=== PATIENT | female | born 1995 | race Caucasian/White ===

== ENCOUNTER 2017-04-27 03:02 | Outpatient (CLI) | payer OTHER ==
[2017-04-27 04:20] VITALS: BP 122/85; PULSE 102; RESP 16; TEMP 96.2
--- NOTE | 2017-04-27 20:19 | P.MSEPDOC ---
Presenting Problems - Arrival Data Date of Arrival on Unit: 04/27/17 Time of Arrival on Unit: 03:02 Mode of Transport: Wheelchair - Complaint OB-Reason for Admission/Chief Complaint: Possible Onset of Labor Medical History - Information : 1 Para: 0 Term: 0 : 0 Abortions: Spontaneous or Elective: 0 Number of Living Children: 0 - Gestational Age Gestational Age by KEVIN (wks/days): 40 Weeks and 6 Days Review of Systems - Review of Systems Constitutional: No problems Breast: No problems ENT: No problems Cardiovascular: No problems Respiratory: No problems Gastrointestinal: No problems Genitourinary: No problems Musculoskeletal: No problems Neurological: No problems Skin: No problems Vital Signs - Temperature Temperature: 96.2 F Temperature Source: Tympanic - Pulse Right Brachial Pulse Rate: 102 Pulse Assessment Method: Automatic Cuff - Respirations Respiratory Rate: 16 Oxygen Delivery Method: Room Air O2 Sat by Pulse Oximetry: 100 - Blood Pressure Right Arm Blood Pressure: 122/85 Blood Pressure Mean: 97 Blood Pressure Source: Automatic Cuff Medical Screen Scoring (Pre) - Cervical Exam Dilation: 1-3 cm = 1 Membranes: Intact - Uterine Contractions Frequency: > 5 minutes apart = 1, > or = 36 weeks =2 - Maternal Vital Signs Maternal Temperature: N/A Maternal Blood Pressure: N/A Signs of Preeclampsia: N/A Maternal Respirations: N/A - Maternal Trauma Maternal Trauma: N/A - Assessment Baseline FHR: 125 Heart Rate - NICHD Category: Category I (Normal) = 0 NST: Reactive Position: N/A Station: N/A - Total Score Total Score (Pre): 4 - Level of Risk Level of Risk: Low (0-5) Physician Notification (Pre) - Physician Notified Physician Notified Date: 04/27/17 Physician Notified Time: 03:45 Physician/Practitioner Notifed:: Dr. Mccloud Spoke With: Dr. Mccloud - Notification Comment Comment: Dr. Mccloud in unit and given report on pt, c/o of contractions, vag exam. Medical Screen Scoring (Post) - Cervical Exam Dilation: 1-3 cm = 1 Membranes: Intact - Uterine Contractions Frequency: > or = 36 weeks =2 - Maternal Vital Signs Maternal Temperature: N/A Maternal Blood Pressure: N/A Signs of Preeclampsia: N/A Maternal Respirations: N/A - Maternal Trauma Maternal Trauma: N/A - Assessment Heart Rate: 125 Heart Rate - NICHD Category: Category I (Normal) = 0 NST: Reactive Position: N/A Station: N/A - Total Score Total Score (Post): 3 - Post Treatment Level of Risk Post Treatment Level of Risk: Low (0-5) Physician Notification (Post) - Physician Notified Physician Notified Date: 04/27/17 Physician Notified Time: 04:30 Physician/Practitioner Notified:: Dr. Mccloud Spoke With: Dr. Mccloud New Order Received: Yes (D/c pt to home) - Notification Comment Comment: Dr. Mccloud notified of no change in pts vag exam after initial hour. Orders. recieved to d/c pt to home. Disposition - Disposition OB Disposition: Discharge to home Discharge Date: 04/27/17 Discharge Time: 04:40 I agree with the RN Medical Screening Exam: Yes Risk & Benefit of care provided described in d/c instruction: Yes Diagnosis: FALSE LABOR AT OR AFTER 37 COMPLETED WEEKS OF GESTATION
== END 2017-04-27 04:40 | disposition home or self-care (01) ==
LOC: FBPOP 03:02
PROVIDERS: ATTEND Obstetrics & Gynecology
DX: O47.1 False labor at or after 37 completed weeks of gestation (principal); Z3A.40 40 weeks gestation of pregnancy
CPT/HCPCS: 59025; 99213

== ENCOUNTER 2017-04-27 17:57 | Inpatient (IN) | payer OTHER ==
[2017-04-27] MEDS ORDERED: LIDOCAINE 1% (PF) 10 MG/ML (30 ML SDV) SQ PRN (18:44)
[2017-04-27] MEDS ORDERED: METHYLERGONOVINE 0.2 MG/ML 1 ML AMP IM PRN (18:44)
[2017-04-27] MEDS ORDERED: TERBUTALINE 1 MG/ML VIAL SQ PRN (18:44)
[2017-04-27] MEDS ORDERED: OXYTOCIN 10 UNIT/ML 1 ML VIAL IM PRN (18:44)
[2017-04-27] MEDS ORDERED: CARBOPROST TROMETHAMINE 250 MCG/ML 1 ML AMP IM PRN (18:44)
[2017-04-27] MEDS ORDERED: LACTATED RINGERS 1,000 ML IV SCH (18:45)
[2017-04-27] MEDS: LACTATED RINGERS 1,000 ML IV SCH ×2 (19:00→20:55)
[2017-04-27 19:11] LABS: Basophils % (A) 0 %; CHCM 35.3; Eosinophils % (A) 0 %; HCT 43.8 % (34.0-46.0); HGB 15.2 gm/dL (11.4-16.0); Luc # (Auto) 0.19; Luc % (Auto) 2; Lymphocytes # (A) 0.9 k/uL (1.0-4.8); Lymphocytes % (A) 9 %; MCH 30.5 pg (25.0-35.0); MCHC 34.6 g/dL (31.0-37.0); MCV 88.1 fL (80.0-100.0); Mean Platelet Volume 6.8; Monocytes # (A) 0.7 k/uL (0-1.0); Monocytes % (A) 7 %; Neutrophils # (A) 8.5 k/uL (1.3-7.7); Neutrophils % (A) 82 %; RBC 4.97 m/uL (3.80-5.40); RDW 13.2 % (11.5-15.5); WBC 10.4 k/uL (3.8-10.6); WBC (Perox) 10.74
[2017-04-27] MEDS ORDERED: fentaNYL (PF) 50 MCG/ML 5 ML AMP ONE (19:20)
[2017-04-27] MEDS ORDERED: SODIUM CHLORIDE 0.9% 100 ML BAG ONE (19:20)
[2017-04-27] MEDS ORDERED: BUPIVACAINE (PF) 0.25% 30 ML VIAL ONE (19:20)
[2017-04-27 19:33] VITALS: BMI 25.0
[2017-04-27] MEDS ORDERED: BUPIVACAINE (PF) 0.25% 25 ML, fentaNYL (PF) 200 MCG in SODIUM CHLORIDE 0.9% 71 ML EPIDURAL ONE (19:42)
--- NOTE | 2017-04-27 20:02 | P.HPOB ---
History of Present Illness H&P Date: 04/27/17 Chief Complaint: 40-6/7 weeks, active labor The patient is a 22-year-old 2 para 0010 admitted at 40-6/7 weeks as established by last menstrual period and confirmed by second trimester ultrasound. She is admitted in active labor with all signs reassuring. Her has been uncomplicated though she did have the first portion of her prior to approximate 32 weeks cared for with another doctor. Since transfer to our care, her has been uncomplicated. Group B strep status is negative. Obstetrical history 2 para 0010 with 1 elective interruption of . Current statistics are listed in history present illness. EDC of 04/21/2017 was established by last menstrual period and confirmed by second trimester ultrasound. Laboratory workup demonstrates a blood type of A+ with a negative antibody screen. Rubella status is immune. The remainder of her laboratory workup is unremarkable though she is apparently varus sella nonimmune. One hour Glucola was within normal limits and group B strep status is negative. Gynecologic history is unremarkable with no history of any infections to include STDs. Review of Systems Review of systems is confined to history of present illness. Past Medical History Additional Past Medical History / Comment(s): anxiety History of Any Multi-Drug Resistant Organisms: None Reported Past Surgical History: No Surgical Hx Reported Past Anesthesia/Blood Transfusion Reactions: No Reported Reaction Past Psychological History: Anxiety Additional Psychological History / Comment(s): never treated Smoking Status: Never smoker Past Alcohol Use History: None Reported Past Drug Use History: None Reported - Past Family History Father Family Medical History: No Reported History Medications and Allergies Home Medications Medication Instructions Recorded Confirmed Type Vit 113/Iron/Lmfolate 1 each PO 04/27/17 History [ Chewable Tab] Allergies Allergy/AdvReac Type Severity Reaction Status Date / Time Penicillins AdvReac Rash/Hives Verified 04/27/17 03:33 Exam - Vital Signs Vital signs: Vital Signs Temp Pulse Resp BP Pulse Ox 04/27/17 18:15 98.0 F 120 H 18 120/84 100 Intake and Output 04/27/17 04/27/17 04/27/17 06:59 14:59 22:59 Other: Weight 74.843 kg Patient Weight 04/28/17 06:59 Weight 74.843 kg In general, this is a well-developed, well-nourished white female in no acute distress. Her heart has a regular rhythm and rate without murmur. Her lungs are clear to auscultation bilaterally in all ken. Her abdomen is gravid, nondistended, has normal active bowel sounds, is soft, nontender, and without any palpable masses aside from the uterine fundus. Her extremities are without any cyanosis, clubbing, or edema and are nontender to palpation bilaterally. Digital cervical examination done traits her cervix to approximate 7 cm dilated , 90% effaced, the vertex in presentation at -2 station. Artificial rupture of membranes is carried out demonstrating lightly meconium-stained fluid. Results Result Diagrams: 04/27/17 18:35 Abnormal Lab Results - Last 24 Hours (Table) 04/27/17 Range/Units 18:35 Neutrophils # 8.5 H (1.3-7.7) k/uL Lymphocytes # 0.9 L (1.0-4.8) k/uL Assessment and Plan (1) Active labor at term Status: Acute Plan: The patient is admitted for active management of labor. An epidural catheter has been placed for analgesia. She will continue to have close maternal and surveillance and expectant management will be practiced. She may require Pitocin augmentation should there be no progress over the next hour.
[2017-04-27] MEDS ORDERED: OXYTOCIN 20 UNITS/1000 ML NS 1,000 ML IV SCH ×2 (21:00→23:00)
[2017-04-27] MEDS ORDERED: diphenhydrAMINE 50 MG/ML 1 ML VIAL IVP PRN ×2 (22:56)
[2017-04-27] MEDS ORDERED: diphenhydrAMINE 25 MG CAP PO PRN (22:56)
[2017-04-27] MEDS ORDERED: Acetaminophen-Codeine 300-30mg TAB PO PRN ×2 (22:56)
[2017-04-27] MEDS ORDERED: ZOLPIDEM 5 MG TAB PO PRN (22:56)
[2017-04-27] MEDS ORDERED: LANOLIN CREAM 5 GM TUBE TOPICAL PRN (22:56)
[2017-04-27] MEDS ORDERED: BENZOCAINE/MENTHOL SPRAY 1 GM/SPRAY AEROSOL TOPICAL PRN (22:56)
[2017-04-27] MEDS ORDERED: WITCH HAZEL 1 EACH MED..PAD TOPICAL PRN (22:56)
[2017-04-27] MEDS ORDERED: HYDROCORTISONE 2.5% RECTAL CREAM 30 GM TUBE RECTAL PRN (22:56)
[2017-04-27] MEDS ORDERED: diphenhydrAMINE 50 MG CAP PO PRN (22:56)
[2017-04-27] MEDS ORDERED: SIMETHICONE 80 MG CHEWABLE PO PRN (22:56)
--- NOTE | 2017-04-27 23:00 | P.PROBDLV ---
Vaginal Delivery Note - . Vaginal Delivery Note: The patient is a 22-year-old 2 para 0010 admitted at 40-6/7 weeks by good dating parameters pH she is admitted in active labor with all signs reassuring. Her has been uncomplicated and group B strep status is negative. On labor and delivery, she had an epidural catheter placed for analgesia. She then underwent artificial rupture of membranes demonstrating lightly meconium-stained fluid. She was making little progress, Pitocin augmentation was started. She then progressed fairly quickly to complete and was having moderate terminal bradycardia with pushing. She was, however, making very steady and rapid progress. heart tones recovered prior to delivery and she pushed over approximately 15 minutes to a normal spontaneous vaginal delivery of a viable 7 lbs. 5 oz. baby boy with Apgars of 8 at 1 minute and 9 at 5 minutes delivered in the right occiput anterior position. The nose and mouth were thoroughly suctioned on the perineum prior to delivery secondary to meconium and per protocol. Following delivery, the infant was immediately vigorous and pink. The placenta was delivered spontaneously, intact , and grossly normal although it was meconium-stained. There was a grossly normal three-vessel cord inserted approximately 2-3 cm from the margin of the placental edge. There were no lacerations of the perineum, vagina, or cervix. Estimated blood loss for the case is approximately 200 mL. There were no complications. All sponge, instrument, and needle counts were correct. Both mother and infant are resting comfortably in recovery.
[2017-04-27] MEDS: IBUPROFEN 600 MG TAB PO PRN (23:10)
[2017-04-28] MEDS: ACETAMINOPHEN TAB 325 MG TAB PO PRN ×2 (05:42→11:18)
--- NOTE | 2017-04-28 07:56 | P.PNOBGVD ---
Subjective - Subjective Patient reports: Reports appetite normal, Reports voiding normally, Reports pain well controlled, Reports ambulating normally : doing well Objective - Latest Vital Signs Latest vital signs: Vital Signs Temp Pulse Resp BP Pulse Ox 04/28/17 04:00 98.5 F 110 H 13 118/73 04/28/17 00:46 114 H 16 133/79 04/28/17 00:16 97.7 F 141 H 16 124/67 04/27/17 23:46 129 H 16 114/76 04/27/17 23:31 117 H 16 127/72 04/27/17 23:16 98.8 F 122 H 16 138/83 04/27/17 23:01 131 H 16 132/79 04/27/17 22:46 98.8 F 123 H 16 142/93 04/27/17 18:15 98.0 F 120 H 18 120/84 100 Intake and Output 04/27/17 04/28/17 04/28/17 22:59 06:59 14:59 Output Total 600 Balance -600 Output: Urine 600 Other: # Voids 1 2 Weight 74.843 kg - Exam Lungs: bilateral: normal Chest: Normal S1, Normal S2 Extremities: Present: normal Abdomen: Present: normal appearance, soft Uterus: Present: normal, firm (The uterine fundus as tonic and nontender at the umbilicus.) - Labs Labs: Abnormal Lab Results - Last 24 Hours (Table) 04/27/17 Range/Units 18:35 Neutrophils # 8.5 H (1.3-7.7) k/uL Lymphocytes # 0.9 L (1.0-4.8) k/uL Assessment and Plan (1) Active labor at term Current Visit: Yes Status: Acute Code(s): UNG0225 - SNOMED Code(s): 16689307 (2) Normal spontaneous vaginal delivery Narrative/Plan: Continue routine care. I would anticipate discharge home tomorrow pending no complications. Current Visit: Yes Status: Acute Code(s): O80 - ENCOUNTER FOR FULL-TERM UNCOMPLICATED DELIVERY SNOMED Code(s): 13913537
[2017-04-28] MEDS: SENNOSIDES-DOCUSATE SODIUM 1 EACH TAB PO SCH (14:22)
[2017-04-28] MEDS: IBUPROFEN 600 MG TAB PO PRN ×2 (14:52→23:48)
[2017-04-28 16:28] VITALS: TEMP 98.2
[2017-04-29] MEDS: SENNOSIDES-DOCUSATE SODIUM 1 EACH TAB PO SCH ×2 (00:09→08:36)
[2017-04-29 08:32] VITALS: BP 112/62; PULSE 86; RESP 20
--- NOTE | 2017-04-29 09:10 | P.PNOBGVD ---
Subjective - Subjective Principal diagnosis: day 2 Interval history: On day #2 this patient is doing well. She is ambulating and voiding without difficulty. She is tolerating regular diet. She denies nausea or vomiting. Her lochia is minimal and she is breast-feeding without difficulty. Patient reports: Reports appetite normal, Reports voiding normally, Reports pain well controlled : doing well (The bedside with mom) Objective - Latest Vital Signs Latest vital signs: Vital Signs Temp Pulse Resp BP 04/29/17 08:00 98.2 F 86 20 112/62 04/28/17 16:00 98.2 F 108 H 18 126/76 Intake and Output 04/28/17 04/29/17 04/29/17 22:59 06:59 14:59 Intake Total 750 Balance 750 Intake: Oral 750 Other: # Voids 1 1 - Exam Lungs: bilateral: normal Extremities: Present: normal Abdomen: Present: normal appearance Uterus: Present: firm Assessment and Plan (1) Active labor at term Narrative/Plan: Anticipate discharge later this morning. Discharge instructions are discussed with this patient in detail. She will follow-up in 2 weeks at [facility] OB/ DATABASE ADMINISTRATION ASSOCIATE with myself Current Visit: Yes Status: Acute Code(s): URE9161 - SNOMED Code(s): 00738378
--- NOTE | 2017-04-29 09:13 | P.DS ---
Providers Date of admission: 04/27/17 18:16 Expected date of discharge: 04/29/17 Attending physician: Mei Erickson Primary care physician: Stated None - Discharge Diagnosis(es) (1) Active labor at term This is a very pleasant 22-year-old 1 para 0 that presented in active labor on 04/27/2017. She progressed to complete and had a normal spontaneous vaginal delivery of a viable male . At 2240. Apgars of 8 and 9 at one and 5 minutes respectively. Weight of 7 lbs. 5 oz. this patient did well and is without complaints today on day #2 and wishes discharge home Current Visit: Yes Status: Acute Hospital Course: Patient was admitted on 04/27/2017 for active labor. She was 6 cm dilated on admission. She progressed through labor and had a normal spontaneous vaginal delivery of a viable male at 2240 weight 7 lbs. 5 oz., Apgars of 8 and 9 at one and 5 minutes respectively. Her course has been uncomplicated. She is ambulatory and voiding without difficulty she is tolerating a regular diet without nausea or vomiting. Her lochia is minimal, breast-feeding is going well Patient Condition at Discharge: Good Plan - Discharge Summary New Discharge Prescriptions: No Action Vit 113/Iron/Lmfolate [ Chewable Tab] 1 each PO Discharge Medication List Vit 113/Iron/Lmfolate [ Chewable Tab] 1 each PO [History] Follow up Appointment(s)/Referral(s): Mei Erickson DO [Doctor of Osteopathic Medicine] - 2 Weeks Patient Instructions/Handouts: Vaginal Delivery (DC) Discharge Disposition: HOME SELF-CARE
== END 2017-04-29 12:05 | disposition home or self-care (01) | DRG 775 ==
LOC: FBPOP 17:57 → 4FBP 18:16
PROVIDERS: ADMIT Obstetrics & Gynecology; ATTEND Obstetrics & Gynecology Obstetrics
PROC: 3E0R3BZ Introduction of Anesthetic Agent into Spinal Canal, Percutaneous Approach (ICD-10-PCS; principal; 2017-04-27)
PROC: 10E0XZZ Delivery of Products of Conception, External Approach (ICD-10-PCS; principal; 2017-04-27)
PROC: 00HU33Z Insertion of Infusion Device into Spinal Canal, Percutaneous Approach (ICD-10-PCS; principal; 2017-04-27)
PROC: 10907ZC Drainage of Amniotic Fluid, Therapeutic from Products of Conception, Via Natural or Artificial Opening (ICD-10-PCS; principal; 2017-04-27)
DX: O48.0 Post-term pregnancy (principal); O77.0 Labor and delivery complicated by meconium in amniotic fluid; Z37.0 Single live birth; Z3A.40 40 weeks gestation of pregnancy; Z88.0 Allergy status to penicillin
CPT/HCPCS: 59025; 85025; 88307; 99213

== ENCOUNTER → 2022-02-19 | Outpatient (CLI) | payer OTHER ==
[2022-02-19 22:20] LABS: HCT 41.1 % (37.2-46.3); HGB 13.8 g/dL (12.0-15.0); MCH 30.8 pg (27.0-32.0); MCHC 33.6 g/dL (32.0-37.0); MCV 91.7 fL (80.0-97.0); NRBC Per 100 WBC 0 /100 WBCS (0.0-0.0); Platelet Count 236 X 10*3/uL (140-440); RBC 4.48 X 10*6/uL (4.10-5.20); RDW 12.6 % (11.5-14.5); WBC 5.01 X 10*3/uL (4.50-10.00)
== END | disposition home or self-care (01) ==
LOC: LABPAT 15:25
PROVIDERS: ATTEND Obstetrics & Gynecology Obstetrics
DX: Z01.812 Encounter for preprocedural laboratory examination (principal); D06.9 Carcinoma in situ of cervix, unspecified
CPT/HCPCS: 85027

== ENCOUNTER 2022-03-12 08:20 | Day surgery (SDC) | payer OTHER ==
[~2022-03-12 08:20] MED LIST: DEXAMETHASONE SOD PHOSPHATE 4 MG/ML 1 ML VIAL IV ONE; HYDROmorphone 0.5 MG/0.5 ML SYRINGE IVP PRN; LACTATED RINGERS 1,000 ML IV SCH; ONDANSETRON 4 MG/2 ML VIAL IVP ONE; Pre Op ABX Message 1 EACH MISC MISCELLANE ONE
[2022-03-12] MEDS ORDERED: MIDAZOLAM 2 MG/2 ML VIAL IVP ONE (09:10)
--- NOTE | 2022-03-12 09:19 | P.HPOB ---
History of Present Illness H&P Date: 03/12/22 Chief Complaint: EDGAR 2, moderate dysplasia 26-year-old female that presents for cold knife cone. Patient underwent colposcopy screening for ASCUS, positive HPV Pap smear. Patient had biopsies consistent with EDGAR-2 at 12:00 and a positive ECC. Review of Systems Constitutional: Denies chills, Denies fatigue, Denies fever Ears, nose, mouth and throat: Denies headache Cardiovascular: Denies leg edema Respiratory: Denies dyspnea Gastrointestinal: Denies nausea, Denies vomiting Genitourinary: Denies Past Medical History Past Medical History: No Reported History Additional Past Medical History / Comment(s): anxiety History of Any Multi-Drug Resistant Organisms: None Reported Past Surgical History: No Surgical Hx Reported Additional Past Surgical History / Comment(s): wisdom teeth removed w/sedation Past Anesthesia/Blood Transfusion Reactions: No Reported Reaction Smoking Status: Never smoker - Past Family History Father Family Medical History: No Reported History Medications and Allergies Home Medications Medication Instructions Recorded Confirmed Type norethindrone-e.estradioL-iron 1 each PO HS 03/09/22 03/12/22 History [ 24 Tablet] Allergies Allergy/AdvReac Type Severity Reaction Status Date / Time Penicillins AdvReac Rash/Hives Verified 03/12/22 08:37 Exam Osteopathic Statement: *. No significant issues noted on an osteopathic structural exam other than those noted in the History and Physical/Consult. Vital Signs Temp Pulse Resp BP Pulse Ox 03/12/22 08:43 97.3 F L 67 16 110/57 97 Intake and Output 03/11/22 03/12/22 03/12/22 22:59 06:59 14:59 Other: Weight 70.7 kg Targeted physical exam is performed in this date and dairy clerk a well-nourished well-developed non patient in no acute distress, breathing is noted to nonlabored, heart has a regular rate and rhythm, abdomen is soft and nontender, on genitourinary exam external genitalia is normal for age no lesions are appreciated. Vaginal mucosa is noted be pink and well rugated the cervix is without lesions and nontender to palpation. There are no adnexal masses appreciated. Assessment and Plan (1) EDGAR II (cervical intraepithelial neoplasia II) Current Visit: Yes Status: Acute Code(s): N87.1 - MODERATE CERVICAL DYSPLASIA SNOMED Code(s): 513688927 Plan: 26-year-old non patient with moderate to severe dysplasia, on colposcopy exam positive biopsies at 12:00 for EDGAR-2, ECC positive for EDGAR-2 as well. Patient's counseling cold knife cone. Multiple questions are answered. Patient states understanding and wishes to proceed with cold knife cone.
[2022-03-12] MEDS ORDERED: KETOROLAC 15 MG/ML 1 ML VIAL ONE (09:30)
[2022-03-12] MEDS ORDERED: MIDAZOLAM 2 MG/2 ML VIAL ONE (09:30)
[2022-03-12] MEDS ORDERED: PROPOFOL 10 MG/ML 20 ML VIAL IV ONE (09:30)
[2022-03-12] MEDS ORDERED: fentaNYL (PF) 50 MCG/ML 2 ML AMP ONE (09:30)
[2022-03-12] MEDS ORDERED: LIDOCAINE 2% INJ 20 MG/ML (2 ML VIAL) ONE (09:30)
[2022-03-12] MEDS ORDERED: LIDOCAINE 1%-EPI 1:100,000 20 ML VIAL SUBMUCOSAL ONE (09:48)
[2022-03-12] MEDS ORDERED: IODINE/POTASS IOD (LUGOLS) BOTTLE TOPICAL ONE (09:48)
[2022-03-12 10:11] VITALS: TEMP 97.6
--- NOTE | 2022-03-12 10:17 | P.OP ---
Date of Procedure: 03/12/22 Preoperative Diagnosis: EDGAR-2 Postoperative Diagnosis: Same Procedure(s) Performed: Cold knife cone Anesthesia: MAC Surgeon: Mei Erickson Estimated Blood Loss (ml): 10 IV fluids (ml): 400 Urine output (ml): 100 Pathology: other (Cervical specimen) Condition: stable Disposition: PACU Indications for Procedure: EDGAR-2 noted at 12:00, positive ECC for EDGAR-2 Operative Findings: Normal-appearing cervix, cold knife cone specimen obtained without difficulty. Description of Procedure: Patient stated that every suite where general anesthesia was obtained without difficulty by the anesthesia department. She was prepped and draped in normal sterile fashion in the dorsal lithotomy position. Rubber catheter used to drain the bladder clear yellow urine. A weighted speculum was placed in the posterior vaginal vault. The anterior lip of the cervix is visualized and grasped with a single-tooth tenaculum. The cervix was then circumferentially injected with lidocaine with epi. 2 stay sutures were placed in the lateral edges of the cervix. These are placed with 0 Vicryl in the usual fashion. The scalpel was then used to make a circumferential excision on the cervix in a cone shape. Afterwards the specimen was removed the edges were made hemostatic with the Bovie. A small amount of bleeding was noted therefore Surgicel powder was placed in the cervical defect. Hemostasis was appreciated. Stay sutures were cut and all instruments removed from the patient's vaginal vault. All counts were noted to be correct 2 patient tolerated procedure well was taken the jodie very room awake in stable condition.
[2022-03-12 10:44] VITALS: RESP 18
[2022-03-12 11:07] VITALS: BP 105/71; PULSE 62
== END 2022-03-12 11:33 | disposition home or self-care (01) ==
LOC: OR 08:20
PROVIDERS: ATTEND Obstetrics & Gynecology Obstetrics
DX: N87.1 Moderate cervical dysplasia (principal); F41.9 Anxiety disorder, unspecified; Z88.0 Allergy status to penicillin; Z79.890 Hormone replacement therapy
CPT/HCPCS: 57520; 81025; 88307; J2250; J1100; J2405; J3010; J1885; J2704; J2001